=== PATIENT | female | born 1990 | race American Indian/Alaskan Native ===

== ENCOUNTER 2019-04-04 09:33 | Emergency (ER) | payer SELFPAY ==
[2019-04-04 10:39] LABS: HCG Qualitative,Urine Positive (Negative)
[2019-04-04 10:42] LABS: Basophils % (Auto) 0.5 % (0.0-1.8); Eosinophils # (Auto) 0.1 K/mm3 (0.0-0.4); Eosinophils % (Auto) 1.9 % (0.0-4.3); Hemoglobin 12.5 gm/dl (10.1-14.3); Lymphocytes # (Auto) 1.4 K/mm3 (1.2-5.4); Lymphocytes % (Auto) 29.8 % (13.4-35.0); Mean Corpuscular HGB Conc 34 % (30-34); Mean Corpuscular Volume 83 fl (79-97); Monocytes # (Auto) 0.3 K/mm3 (0.0-0.8); Monocytes % (Auto) 6.5 % (0.0-7.3); Platelet Count 212 K/mm3 (140-440); Red Blood Count 4.44 M/mm3 (3.65-5.03); Red Cell Distribution Width 14.5 % (13.2-15.2)
--- NOTE | 2019-04-04 10:54 | Emergency Department Report ---
HPI - General Chief Complaint: Abdominal Pain Time Seen by Provider: 04/04/19 09:55 - HPI HPI: 28-year-old [place] female presents to the emergency department with a few different complaints. Patient says that she has some intermittent left lower rib/chest pains that have been going on over the past few months. When they occur, they are sharp, transient, and she says that it hurts to breathe, but the patient denies any of these symptoms at this current time. However last night she had 2-3 episodes of this which was more than usual so she wanted to get checked out. Secondly, the patient complains of a 2-3 day history of some pain behind the left shoulder blade that occurs only with movement of the left arm. Lastly, the patient has some intermittent lower abdominal pains/cramping. She is about 2.5 weeks late for her menstrual cycle. She says that the pains that she is having usually occur during her menstrual cycle but she is not having any current vaginal bleeding. ED Past Medical Hx - Past Medical History Previous Medical History?: Yes Hx Hypertension: No Hx Congestive Heart Failure: No Hx Diabetes: No Hx Deep Vein Thrombosis: No Hx Renal Disease: No Hx Sickle Cell Disease: No Hx Seizures: No Hx Asthma: No Hx COPD: No Hx HIV: No Additional medical history: bact. vaginosis, cysts in breasts, - Surgical History Past Surgical History?: No - Social History Smoking Status: Never Smoker Substance Use Type: Alcohol, Marijuana - Medications Home Medications: Home Medications Medication Instructions Recorded Confirmed Last Taken Type Ferrous Sulfate [Feosol] 325 mg PO QDAY 08/26/16 08/26/16 Unknown History Ibuprofen [Motrin 600 MG tab] 600 mg PO Q8H PRN #30 tablet 08/26/16 Unknown Rx Pnv No.95/Ferrous Fum/Folic AC 1 each PO DAILY 08/26/16 08/26/16 Unknown History [Prenavite Tablet] Docusate Sodium [Colace] 100 mg PO BID PRN #60 capsule 08/28/16 Unknown Rx Ferrous Sulfate [Feosol 325 MG tab] 325 mg PO BID #60 tablet 08/28/16 Unknown Rx Lidocain2.5%/Prilocai2.5% [Emla] 5 gm TP PRN #1 tube 08/28/16 Unknown Rx Vit-Fe Fumar-FA [ 1 tab PO QDAY #30 tablet 04/04/19 Unknown Rx Vitamin] ED Review of Systems ROS: Stated complaint: SIDE PAIN/ABD/SHOULDER PAIN Other details as noted in HPI Comment: All other systems reviewed and negative Constitutional: denies: chills, fever Eyes: denies: eye pain, vision change ENT: denies: ear pain, throat pain Respiratory: denies: cough, wheezing Cardiovascular: chest pain. denies: palpitations Gastrointestinal: abdominal pain. denies: vomiting Genitourinary: denies: dysuria, discharge Musculoskeletal: myalgia. denies: joint swelling Skin: denies: rash, lesions Neurological: denies: headache, numbness, paresthesias Physical Exam - Physical Exam Vital Signs: Vital Signs 04/04/19 09:46 Temperature 98.8 F Pulse Rate 92 H Respiratory 18 Rate Blood Pressure 128/81 O2 Sat by Pulse 100 Oximetry Physical Exam: GENERAL: The patient is well-developed well-nourished. HENT: Normocephalic. Atraumatic. Patient has moist mucous membranes. EYES: Extraocular motions are intact. NECK: Supple. Trachea is midline. CHEST/LUNGS: Clear to auscultation. There is no respiratory distress noted. HEART/CARDIOVASCULAR: Regular. There is no tachycardia. There is no murmur. ABDOMEN: Abdomen is soft, nontender. Patient has normal bowel sounds. There is no abdominal distention. SKIN: Skin is warm and dry. NEURO: The patient is awake, alert, and oriented. The patient is cooperative. The patient has no focal neurologic deficits. The patient has normal speech. MUSCULOSKELETAL: There is no tenderness or deformity. There is no limitation range of motion. There is no evidence of acute injury. ED Course Vital Signs 04/04/19 09:46 Temperature 98.8 F Pulse Rate 92 H Respiratory 18 Rate Blood Pressure 128/81 O2 Sat by Pulse 100 Oximetry ED Medical Decision Making - Lab Data Result diagrams: 04/04/19 10:13 04/04/19 10:13 - EKG Data -: EKG Interpreted by Me EKG shows normal: sinus rhythm, axis, intervals, QRS complexes, ST-T waves Rate: normal - EKG Data When compared to previous EKG there are: previous EKG unavailable Interpretation: normal EKG - Radiology Data Radiology results: report reviewed, image reviewed interpreted by me: Chest x-ray does not show any acute process. There are no pleural effusions, obvious pneumonia and there is no pneumothorax. PROCEDURE: US OB <= 14 WEEKS FETUS TECHNIQUE: Transabdominal and transvaginal pelvic ultrasound HISTORY: abd pain, COMPARISONS: No priors FINDINGS: The uterus measures approximately 7.4 cm longitudinally. There is a single viable intrauterine . [place]-rump length corresponds to a gestational age of 7 weeks and 3 days. The heart rate is 159 bpm. There is no evidence of subchorionic hemorrhage. The right ovary is normal in contour and echotexture. There is a complex lesion in the left ovary with complex cystic component most consistent with corpus luteum measuring 1.7 cm in diameter. Ovarian vascularity demonstrated with color flow images. IMPRESSION: Single viable intrauterine at approximately 7 weeks and 3 days of gestation 1.7 cm corpus luteum in the left ovary. . This document is electronically signed by Adonay Robertson MD., April 04 2019 01:16:48 PM ET - Medical Decision Making This patient presents to the emergency department with a complaint of some short transient sharp pains that she gets in the left lower portion of the rib cage that has been going on for the past month or so but she had 2 or 3 episodes of this last night that caused her to come in to be seen. It happens with inspiration but otherwise she denies being short of breath overall. She had an EKG that does not show any ST elevation [place], ischemia or dysrhythmia. Patient had some blood work done and early on the urinalysis came back showing just she was positive for . She later admitted that she was a few weeks late for her last menstrual cycle. We discussed the risk versus benefits of getting a chest x-ray and she agreed to get a shielded one view AP chest x-ray. It did not show any signs of any pneumothorax, pleural effusions, focal consolidation, pneumonia, or any other acute process. Patient is not having any vaginal bleeding or any significant abdominal pain but does have some abdominal cramping. For this reason, along with the positive test, the patient had a transvaginal/ ultrasound came back showing a live intrauterine at about 7 weeks and 3 days. She has not had any further episodes of her chest pain or shortness of breath twinges while in the emergency department. Her vital signs are stable including being afebrile. There is been no tachypnea or hypoxia. She is low on the well's score criteria for concern of pulmonary embolism and is negative on the pulmonary embolism rule out criteria. 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 She will return to the ER with any return of her chest pain, shortness of breath, worsening of her symptoms, or with any acute distress. - Differential Diagnosis pneumonia, pneumothorax, viral URI, pleurisy Critical Care Time: No Critical care attestation.: If time is entered above; I have spent that time in minutes in the direct care of this critically ill patient, excluding procedure time. ED Disposition Clinical Impression: Rib pain on left side, Pain of left scapula, Musculoskeletal pain Qualifiers: Weeks of gestation: less than 8 weeks Qualified Code(s): Z3A.01 - Less than 8 weeks gestation of Disposition: - TO HOME OR SELFCARE Is pt being admited?: No Condition: Stable Instructions: Chest Pain (ED), (ED), Musculoskeletal Pain (ED) Additional Instructions: Please follow-up with your [employer]SEMBLER and a primary care physician. Return to the emergency Department with any worsening of your symptoms or any acute distress. You can take Tylenol every 4-6 hours, using the weight-based dosing on the back of the bottle, as needed for any discomfort. Otherwise do not take any medications that are not prescribed by a physician. I am starting you on vitamins. Prescriptions: Vit-Fe Fumar-FA [ Vitamin] 1 tab PO QDAY #30 tablet Referrals: TAYO IRWIN MD [Primary Care Provider] - 3-5 Days RAMIN REGALADO MD [Staff Physician] - 3-5 Days Forms: Work/School Release Form(ED) Time of Disposition: 16:06
[2019-04-04 11:01] LABS: Alanine Aminotransferase 12 units/L (7-56); Albumin 4.1 g/dL (3.9-5); BUN/Creatinine Ratio 20; Blood Urea Nitrogen 10 mg/dL (7-17); Hemolysis Index 5
[2019-04-04 11:20] LABS: Bilirubin,Urine NEG (Negative); Blood,Urine NEG (Negative); Color,Urine Yellow (Yellow); Mucus,Urine 2+ /HPF; Protein,Urine <15 mg/dL mg/dL (Negative); Urobilinogen,Urine < 2.0 mg/dL (<2.0)
--- NOTE | 2019-04-04 13:09 | XRay Report ---
PROCEDURE: XR CHEST 1V AP TECHNIQUE: Chest radiograph single view. HISTORY: chest pain COMPARISONS: None currently available. FINDINGS: Cardiac silhouette is within normal limits. There is no effusion. There is no pneumothorax. There is no consolidation. There are no suspicious osseous lesions. IMPRESSION: * No acute cardiopulmonary findings. This document is electronically signed by Segundo Dias MD., April 04 2019 01:06:56 PM ET
--- NOTE | 2019-04-04 13:18 | Ultrasound Report ---
PROCEDURE: US OB <= 14 WEEKS FETUS TECHNIQUE: Transabdominal and transvaginal pelvic ultrasound HISTORY: abd pain, COMPARISONS: No priors FINDINGS: The uterus measures approximately 7.4 cm longitudinally. There is a single viable intrauterine . [place]-rump length corresponds to a gestational age of 7 weeks and 3 days. The heart rate is 159 bpm. There is no evidence of subchorionic hemorrhage. The right ovary is normal in contour and echotexture. There is a complex lesion in the left ovary with complex cystic component most consistent with corpus luteum measuring 1.7 cm in diameter. Ovarian vascularity demonstrated with color flow images. IMPRESSION: Single viable intrauterine at approximately 7 weeks and 3 days of gestation 1.7 cm corpus luteum in the left ovary. . This document is electronically signed by Adonay Robertson MD., April 04 2019 01:16:05 PM ET
--- NOTE | 2019-04-04 13:18 | Ultrasound Report ---
PROCEDURE: US OB <= 14 WEEKS FETUS TECHNIQUE: Transabdominal and transvaginal pelvic ultrasound HISTORY: abd pain, COMPARISONS: No priors FINDINGS: The uterus measures approximately 7.4 cm longitudinally. There is a single viable intrauterine . [place]-rump length corresponds to a gestational age of 7 weeks and 3 days. The heart rate is 159 bpm. There is no evidence of subchorionic hemorrhage. The right ovary is normal in contour and echotexture. There is a complex lesion in the left ovary with complex cystic component most consistent with corpus luteum measuring 1.7 cm in diameter. Ovarian vascularity demonstrated with color flow images. IMPRESSION: Single viable intrauterine at approximately 7 weeks and 3 days of gestation 1.7 cm corpus luteum in the left ovary. . This document is electronically signed by Adonay Robertson MD., April 04 2019 01:16:48 PM ET
[2019-04-04 13:50] VITALS: BP 125/54
== END 2019-04-04 13:48 | disposition home or self-care (01) ==
LOC: ED 09:33
DX: O26.891 Other specified pregnancy related conditions, first trimester (principal); R07.81 Pleurodynia; M25.512 Pain in left shoulder; O99.321 Drug use complicating pregnancy, first trimester; F12.10 Cannabis abuse, uncomplicated; Z91.018 Allergy to other foods; Z3A.01 Less than 8 weeks gestation of pregnancy
CPT/HCPCS: 36415; 71045; 76801; 76817; 80053; 81001; 81025; 83690; 84484; 85025; 93005; 93010

== ENCOUNTER 2020-05-13 23:13 | Emergency (ER) | payer MEDICAID ==
[2020-05-14 03:10] VITALS: BP 150/90
[2020-05-14] MEDS ORDERED: IBUPROFEN 600 MG TAB PO ONE (03:12)
--- NOTE | 2020-05-14 03:13 | Emergency Department Report ---
- General Chief complaint: Skin/Abscess/Foreign Body Stated complaint: LEFT BREAST HARD AND SWOLLEN Time Seen by Provider: 05/14/20 02:37 Source: patient Mode of arrival: Ambulatory Limitations: No Limitations - History of Present Illness Initial comments: 29-year-old -Tong[place] female presents to the emergency room for left breast pain and swelling redness for 5 days. Patient states that she had some drainage from her nipple left breast when she palpates. Patient reports that she was seen at [facility] on and was given a prescription for ibuprofen. Patient does endorse that she has a [employer] Dr. Beckwith but had not followed up with him. Patient denies any fever chills no nausea no vomiting. Onset/Timin -: days(s) Tetanus Up to Date: yes Location: chest (Left breast) Severity scale (0 -10): 9 Quality: stabbing, sharp Consistency: constant Improves with: none Worsens with: palpation, movement Context: none Associated symptoms: denies other symptoms Treatments Prior to Arrival: NSAID - Related Data Home Medications Medication Instructions Recorded Confirmed Last Taken Ferrous Sulfate [Feosol] 325 mg PO QDAY 08/26/16 08/26/16 Unknown Pnv No.95/Ferrous Fum/Folic AC 1 each PO DAILY 08/26/16 08/26/16 Unknown [Prenavite Tablet] Previous Rx's Medication Instructions Recorded Last Taken Type Ibuprofen [Motrin 600 MG tab] 600 mg PO Q8H PRN #30 tablet 08/26/16 Unknown Rx Docusate Sodium [Colace] 100 mg PO BID PRN #60 capsule 08/28/16 Unknown Rx Ferrous Sulfate [Feosol 325 MG tab] 325 mg PO BID #60 tablet 08/28/16 Unknown Rx Lidocain2.5%/Prilocai2.5% [Emla] 5 gm TP PRN #1 tube 08/28/16 Unknown Rx Vit-Fe Fumar-FA [ 1 tab PO QDAY #30 tablet 04/04/19 Unknown Rx Vitamin] Allergies Allergy/AdvReac Type Severity Reaction Status Date / Time tomato [Tomato] Allergy Hives Verified 07/09/13 09:56 Abscess Boil HPI - HPI Chief Complaint: Skin/Abscess/Foreign Body Stated Complaint: LEFT BREAST HARD AND SWOLLEN Time Seen by Provider: 07/19/20 02:37 Home Medications: Home Medications Medication Instructions Recorded Confirmed Last Taken Ferrous Sulfate [Feosol] 325 mg PO QDAY 08/26/16 08/26/16 Unknown Pnv No.95/Ferrous Fum/Folic AC 1 each PO DAILY 08/26/16 08/26/16 Unknown [Prenavite Tablet] Previous Rx's Medication Instructions Recorded Last Taken Type Ibuprofen [Motrin 600 MG tab] 600 mg PO Q8H PRN #30 tablet 08/26/16 Unknown Rx Docusate Sodium [Colace] 100 mg PO BID PRN #60 capsule 08/28/16 Unknown Rx Ferrous Sulfate [Feosol 325 MG tab] 325 mg PO BID #60 tablet 08/28/16 Unknown Rx Lidocain2.5%/Prilocai2.5% [Emla] 5 gm TP PRN #1 tube 08/28/16 Unknown Rx Vit-Fe Fumar-FA [ 1 tab PO QDAY #30 tablet 04/04/19 Unknown Rx Vitamin] Allergies/Adverse Reactions: Allergies Allergy/AdvReac Type Severity Reaction Status Date / Time tomato [Tomato] Allergy Hives Verified 07/09/13 09:56 ED Review of Systems ROS: Stated complaint: LEFT BREAST HARD AND SWOLLEN Other details as noted in HPI Comment: All other systems reviewed and negative ED Past Medical Hx - Past Medical History Hx Hypertension: No Hx Congestive Heart Failure: No Hx Diabetes: No Hx Deep Vein Thrombosis: No Hx Renal Disease: No Hx Sickle Cell Disease: No Hx Seizures: No Hx Asthma: No Hx COPD: No Hx HIV: No Additional medical history: bact. vaginosis, cysts in breasts, - Surgical History Past Surgical History?: No - Social History Smoking Status: Never Smoker Substance Use Type: None - Medications Home Medications: Home Medications Medication Instructions Recorded Confirmed Last Taken Type Ferrous Sulfate [Feosol] 325 mg PO QDAY 08/26/16 08/26/16 Unknown History Ibuprofen [Motrin 600 MG tab] 600 mg PO Q8H PRN #30 tablet 08/26/16 Unknown Rx Pnv No.95/Ferrous Fum/Folic AC 1 each PO DAILY 08/26/16 08/26/16 Unknown History [Prenavite Tablet] Docusate Sodium [Colace] 100 mg PO BID PRN #60 capsule 08/28/16 Unknown Rx Ferrous Sulfate [Feosol 325 MG tab] 325 mg PO BID #60 tablet 08/28/16 Unknown Rx Lidocain2.5%/Prilocai2.5% [Emla] 5 gm TP PRN #1 tube 08/28/16 Unknown Rx Vit-Fe Fumar-FA [ 1 tab PO QDAY #30 tablet 04/04/19 Unknown Rx Vitamin] ED Physical Exam - General Limitations: No Limitations General appearance: alert, in no apparent distress, in distress - Head Head exam: Present: atraumatic, normocephalic - Eye Eye exam: Present: normal appearance - ENT ENT exam: Present: mucous membranes moist - Neck Neck exam: Present: normal inspection, full ROM. Absent: lymphadenopathy - Respiratory Respiratory exam: Present: normal lung sounds bilaterally, other (Left breast large mass with warmth and tenderness no nipple discharge masses on the lateral). Absent: respiratory distress - Cardiovascular Cardiovascular Exam: Present: regular rate - Neurological Exam Neurological exam: Present: alert, oriented X3, normal gait - Psychiatric Psychiatric exam: Present: normal affect, normal mood ED Medical Decision Making - Medical Decision Making 29-year-old -Tongan female presents to the emergency room for left breast pain and swelling redness for 5 days. Patient states that she had some drainage from her nipple left breast when she palpates. Patient reports that she was seen at [facility] on and was given a prescription for ibuprofen. Patient does endorse that she has a [employer]EL [employer] Dr. Beckwith but had not followed up with him. Patient denies any fever chills no nausea no vomiting. This patient was evaluated by Dr. Harley ER attending. He recommends following up with the breast specialist and [employer]EL [employer]UFACTURE INSTRUCTOR. I recommend patient to continue with pain medication follow-up with specialist warm compresses. Critical care attestation.: If time is entered above; I have spent that time in minutes in the direct care of this critically ill patient, excluding procedure time. ED Disposition Clinical Impression: Breast lump or mass Disposition: TO HOME OR SELFCARE Is pt being admited?: No Does the pt Need Aspirin: No Condition: Stable Instructions: Breast Mass (ED) Additional Instructions: Continue with the ibuprofen. Warm compresses. And very important for you to follow-up with APPAREL [employer]UFACTURE INSTRUCTOR. I am also putting down on your discharge summary a breast specialist Dr. Mckeon. Call her office on Friday morning to make an appointment as well. Referrals: RAMIN BECKWITH MD [Primary Care Provider] - 3-5 Days GAVIN MCKEON MD [Staff Physician] - 3-5 Days Forms: Work/School Release Form(ED)
== END 2020-05-14 03:36 | disposition home or self-care (01) ==
LOC: ED 23:13
DX: N63.20 Unspecified lump in the left breast, unspecified quadrant (principal); Z79.899 Other long term (current) drug therapy; Z91.018 Allergy to other foods
CPT/HCPCS: 99282

== ENCOUNTER 2020-11-14 18:39 | Emergency (ER) | payer MEDICAID ==
--- NOTE | 2020-11-14 19:12 | Event Note ---
ED Screening Note Date of service: 11/14/20 Time: 19:09 ED Screening Note: pt is a 30 y/o aaf with hx of Fibrocystic breast who present with CP and SOB with n/v after [address] am, symptoms sudden onset, have worsen ed since 1030 am. rated at 6/10 at this time. denies hx of PE, nonsmoker, no oral contraceptives. This initial assessment/diagnostic orders/clinical plan/treatment(s) is/are subject to change based on patients health status, clinical progression and re-assessment by fellow clinical providers in the ED. Further treatment and workup at subsequent clinical providers discretion. Patient/guardian urged not to elope from the ED as their condition may be serious if not clinically assessed and managed. Initial orders include: EKG, CXR, cbc, hcg, pt, ptt,
[2020-11-14 20:48] LABS: Basophils % (Auto) 0.6 % (0.0-1.8); Eosinophils # (Auto) 0.1 K/mm3 (0.0-0.4); Eosinophils % (Auto) 0.8 % (0.0-4.3); Hematocrit 32.6 % (30.3-42.9); Hemoglobin 10.2 gm/dl (10.1-14.3); Lymphocytes # (Auto) 1.6 K/mm3 (1.2-5.4); Mean Corpuscular HGB Conc 31 % (30-34); Mean Corpuscular Volume 71 fl (79-97); Monocytes # (Auto) 0.5 K/mm3 (0.0-0.8); Monocytes % (Auto) 7.8 % (0.0-7.3); Platelet Count 295 K/mm3 (140-440); Red Blood Count 4.58 M/mm3 (3.65-5.03); Red Cell Distribution Width 17.3 % (13.2-15.2)
[2020-11-14 21:01] LABS: INR 1.15 (0.87-1.13)
[2020-11-14 21:02] LABS: Partial Thromboplastin Time 33.2 Sec. (24.2-36.6)
[2020-11-14 21:16] LABS: Alanine Aminotransferase 75 units/L (7-56); Albumin 4.2 g/dL (3.9-5); Blood Urea Nitrogen 8 mg/dL (7-17); Calcium 9.1 mg/dL (8.4-10.2); Hemolysis Index 2
[2020-11-14 21:19] LABS: BUN/Creatinine Ratio 16
--- NOTE | 2020-11-15 02:00 | Emergency Department Report ---
ED General Adult HPI - General Chief complaint: Nausea/Vomiting/Diarrhea Stated complaint: CHEST PAIN PUI?: No Time Seen by Provider: 11/15/20 01:30 Source: patient Mode of arrival: Ambulatory Limitations: No Limitations - History of Present Illness Initial comments: Chief complaint: My chest was hurting. I just wanted to get checked out. H PI: This is a 28-year-old female with history of granulomatous mastitis requiring incision and drainage who presents with left-sided right-sided chest pain gradual onset this evening. Pain is worse with deep breath. Pain has subsided. She denies cough shortness of breath. No use of control. No recent travel. Pain has not returned since being observed in emergency departm ent for several hours. She denies fever. She denies any sick contacts. She also noticed that she had a upset stomach. She has had irregular bleeding this month. She has had 2 episodes of vaginal bleeding which both lasted several days this month. Patient is currently symptom-free. -: Gradual Location: chest Consistency: now resolved Improves with: none Worsens with: other (Inspiration) - Related Data Previous Rx's Medication Instructions Recorded Last Taken Type Acetaminophen [Acetaminophen TAB] 650 mg PO Q4H PRN tablet 06/30/20 Unknown Rx Oxycodone HCl/Acetaminophen 1 each PO TID PRN #12 tablet 06/30/20 Unknown Rx [Percocet 10/325 mg] predniSONE 10 mg PO QDAY tablet 06/30/20 Unknown Rx traMADoL [Ultram 50 MG tab] 50 mg PO Q6HR PRN #15 tablet 06/30/20 Unknown Rx Allergies Allergy/AdvReac Type Severity Reaction Status Date / Time No Known Allergies Allergy Verified 06/26/20 13:05 ED Review of Systems ROS: Stated complaint: CHEST PAIN Other details as noted in HPI Comment: All other systems reviewed and negative Constitutional: denies: fever, malaise Respiratory: shortness of breath. denies: cough Cardiovascular: chest pain ED Past Medical Hx - Past Medical History Previous Medical History?: Yes Hx Hypertension: No Hx Congestive Heart Failure: No Hx Diabetes: No Hx Deep Vein Thrombosis: No Hx Renal Disease: No Hx Sickle Cell Disease: No Hx Seizures: No Hx Asthma: No Hx COPD: No Hx HIV: No Additional medical history: bact. vaginosis, cysts in breasts, MASTITIS ( C HRONIC) - Surgical History Past Surgical History?: Yes Hx Pacemaker: No Hx Internal Defibrillator: No Additional Surgical History: Breast incision and drainage - Social History Smoking Status: Never Smoker - Medications Home Medications: Home Medications Medication Instructions Recorded Confirmed Last Taken Type Acetaminophen [Acetaminophen TAB] 650 mg PO Q4H PRN tablet 06/30/20 Unknown Rx Oxycodone HCl/Acetaminophen 1 each PO TID PRN #12 tablet 06/30/20 Unknown Rx [Percocet 10/325 mg] predniSONE 10 mg PO QDAY tablet 06/30/20 Unknown Rx traMADoL [Ultram 50 MG tab] 50 mg PO Q6HR PRN #15 tablet 06/30/20 Unknown Rx ED Physical Exam - General Limitations: No Limitations General appearance: alert, in no apparent distress, other (Heart rate 66 bpm on monitor pulse ox 97% on room air) - Head Head exam: Present: atraumatic, normocephalic - Eye Eye exam: Present: normal appearance - ENT ENT exam: Present: mucous membranes moist - Neck Neck exam: Present: normal inspection, full ROM - Respiratory Respiratory exam: Present: normal lung sounds bilaterally. Absent: respiratory distress, wheezes, rales, rhonchi - Cardiovascular Cardiovascular Exam: Present: regular rate, normal rhythm, normal heart sounds. Absent: systolic murmur, diastolic murmur, rubs, gallop - GI/Abdominal GI/Abdominal exam: Present: soft, normal bowel sounds. Absent: distended, tenderness, guarding, rebound - Extremities Exam Extremities exam: Present: normal inspection - Neurological Exam Neurological exam: Present: alert, oriented X3 - Psychiatric Psychiatric exam: Present: normal affect, normal mood - Skin Skin exam: Present: warm, dry, intact, normal color. Absent: rash ED Course Vital Signs 11/14/20 19:01 Temperature 97.9 F Pulse Rate 96 H Respiratory 18 Rate Blood Pressure 155/98 [Right] O2 Sat by Pulse 74 L Oximetry ED Medical Decision Making - Lab Data Result diagrams: 11/14/20 20:05 11/14/20 20:05 Laboratory Results - last 24 hr 11/14/20 11/14/20 11/14/20 20:05 20:05 20:05 WBC 6.9 RBC 4.58 Hgb 10.2 Hct 32.6 MCV 71 L MCH 22 L MCHC 31 RDW 17.3 H Plt Count 295 Lymph % (Auto) 23.0 [place] % (Auto) 7.8 H Eos % (Auto) 0.8 Baso % (Auto) 0.6 Lymph # (Auto) 1.6 [place] # (Auto) 0.5 Eos # (Auto) 0.1 Baso # (Auto) 0.0 Seg Neutrophils % 67.8 Seg Neutrophils # 4.7 PT 14.5 INR 1.15 H APTT 33.2 Sodium 138 Potassium 4.0 Chloride 104.1 Carbon Dioxide 22 Anion Gap 16 BUN 8 Creatinine 0.5 L Estimated GFR > 60 BUN/Creatinine Ratio 16 Glucose 89 Calcium 9.1 Total Bilirubin 0.30 AST 59 H ALT 75 H Alkaline Phosphatase 169 H Total Protein 7.7 Albumin 4.2 Albumin/Globulin Ratio 1.2 Lipase 20 - Radiology Data Radiology results: report reviewed cxr: no significant abnormality according to radiology impression - Medical Decision Making 1. Chest pain: No indication of pulmonary embolism or AMI. Patient is at extremely low risk for cardiac disease. Do not suspect pericarditis with presentation. I suspect chest wall pain versus PVC. PERC negative for PE. No history of premature heart disease in the family. 2. Stomach upset generalized malaise. I recommended home test. Also recommended COVID-19 testing. Critical care attestation.: If time is entered above; I have spent that time in minutes in the direct care of this critically ill patient, excluding procedure time. ED Disposition Clinical Impression: Chest wall pain Disposition: DC-01 TO HOME OR SELFCARE Is pt being admited?: No Does the pt Need Aspirin: No Condition: Stable Instructions: Chest Wall Pain, [id number], Nonspecific Chest Pain, Adult, [id number], Chest Pain (ED) Additional Instructions: If your symptoms progress, please obtain COVID-19 test. Referrals: TAYO IRWIN MD [Staff Physician] - 3-5 Days Forms: Work/School Release Form(ED)
--- NOTE | 2020-11-15 02:58 | XRay Report ---
CHEST 2 VIEWS 0235 INDICATION / CLINICAL INFORMATION: chest pain COMPARISON: 06/26/2020 FINDINGS: SUPPORT DEVICES: None. HEART / MEDIASTINUM: No significant abnormality. LUNGS / PLEURA: No significant pulmonary or pleural abnormality. No pneumothorax. ADDITIONAL FINDINGS: No significant additional findings. IMPRESSION: No significant acute abnormality Signer Name: Robert Hopkins MD Signed: 11/15/2020 2:53 AM Workstation Name: [id number]
[2020-11-15 03:01] VITALS: BP 107/72
== END 2020-11-15 03:06 | disposition home or self-care (01) ==
LOC: ED 18:39
DX: R07.89 Other chest pain (principal); Z79.899 Other long term (current) drug therapy
CPT/HCPCS: 36415; 71046; 80053; 83690; 85025; 85610; 85730; 99283

== ENCOUNTER 2021-06-25 14:04 | Emergency (ER) | payer MEDICAID ==
[2021-06-25 14:32] VITALS: BP 143/86
[2021-06-25] MEDS ORDERED: ASPIRIN 325 MG TAB PO ONE (14:34)
[2021-06-25 15:12] LABS: Basophils % (Auto) 0.8 % (0.0-1.8); Eosinophils # (Auto) 0.1 K/mm3 (0.0-0.4); Eosinophils % (Auto) 1.8 % (0.0-4.3); Hematocrit 33.4 % (30.3-42.9); Hemoglobin 10.8 gm/dl (10.1-14.3); Lymphocytes # (Auto) 1.7 K/mm3 (1.2-5.4); Lymphocytes % (Auto) 43.3 % (13.4-35.0); Mean Corpuscular HGB Conc 32 % (30-34); Mean Corpuscular Volume 74 fl (79-97); Monocytes # (Auto) 0.3 K/mm3 (0.0-0.8); Monocytes % (Auto) 8.5 % (0.0-7.3); Platelet Count 199 K/mm3 (140-440); Red Blood Count 4.48 M/mm3 (3.65-5.03); Red Cell Distribution Width 16.4 % (13.2-15.2)
--- NOTE | 2021-06-25 15:21 | XRay Report ---
CHEST 2 VIEWS INDICATION: chest pain. COMPARISON: 11/15/2020 FINDINGS: SUPPORT DEVICES: None. HEART: Within normal limits. LUNGS/PLEURA: No acute air space or interstitial disease. No pneumothorax. ADDITIONAL FINDINGS: None. IMPRESSION: 1. No acute findings. Signer Name: Jonnathan Segundo MD Signed: 06/25/2021 3:17 PM Workstation Name: [email or web address][email or web address]
[2021-06-25 15:35] LABS: Alanine Aminotransferase 12 units/L (7-56); Albumin 4.3 g/dL (3.9-5); Blood Urea Nitrogen 11 mg/dL (7-17); Calcium 9.3 mg/dL (8.4-10.2); Hemolysis Index 6
[2021-06-25 15:39] LABS: BUN/Creatinine Ratio 22
--- NOTE | 2021-06-25 17:36 | Event Note ---
ED Screening Note ED Screening Note: Patient is a 30-year-old female presents emergency room with complaints of chest pain across the chest that began this morning She has associated shortness of breath and pain with taking a deep breath She states her pain is also worse with movement She states her pain feels like a pulling sensation She denies any cough, nausea, vomiting, diarrhea, fever, chills Past medical history of IgM and she said she used to take steroids but was taken off 6 months ago Allergy to morphine No sick contacts, no recent travel, no hormone use This initial assessment/diagnostic orders/clinical plan/treatment(s) is/are subject to change based on patients health status, clinical progression and re- assessment by fellow clinical providers in the ED. Further treatment and workup at subsequent clinical providers discretion. Patient/guardian urged not to elope from the ED as their condition may be serious if not clinically assessed and managed. Initial orders include: Second troponin, will add on D-dimer due to pleuritic pain
--- NOTE | 2021-06-25 19:24 | Emergency Department Report ---
ED Chest Pain HPI - General Chief Complaint: Chest Pain Stated Complaint: CP/MARGE Time Seen by Provider: 06/25/21 17:29 Source: patient Mode of arrival: Ambulatory Limitations: No Limitations - History of Present Illness Initial Comments: Patient is a 30-year-old -[place] female with no past medical history who presents to the ED with complaint of acute onset persistent diffuse anterior chest wall pain after she slept on the couch 2 days ago. Patient states that the pain is worse with inhalation, movement or any active range of motion includ ing turning her neck on either side. Patient states that the pain is persistent and worse with even slight movement. Patient denies fever, chills, shortness of breath, nausea and vomiting, traumatic injury, dizziness, syncope, palpitations, heavy lifting, fever, chills, cough, sore throat, back pain, abdominal pain, diarrhea, change in vision, neck pain or bilateral upper and lower extremity keila moreno MD Complaint: chest pain (Anterior diffuse chest wall pain) -: Sudden, hour(s) (12) Onset: awoke with symptoms Pain Location: substernal Pain Radiation: none Severity: severe Severity scale (0 -10): 7 Quality: aching, sharp Consistency: constant Improves With: nothing Worsens With: palpation, movement Context: other (slept in the couch all night) re: denies: nausea, vomting, diaphoresis, dyspnea, sense of impending doom Other Symptoms: denies: cough, fever, syncope, rash, acid taste in mouth, palpitations, burping, other Treatments Prior to Arrival: none Aspirin use within the Past 7 Days: (0) No - Related Data On Oral Contraceptives: No Previous Rx's Medication Instructions Recorded Last Taken Type Acetaminophen [Acetaminophen TAB] 650 mg PO Q4H PRN tablet 06/30/20 Unknown Rx Oxycodone HCl/Acetaminophen 1 each PO TID PRN #12 tablet 06/30/20 Unknown Rx [Percocet 10/325 mg] predniSONE 10 mg PO QDAY tablet 06/30/20 Unknown Rx Baclofen 20 mg PO Q12H PRN #30 tablet 06/25/21 Unknown Rx Ibuprofen [Motrin] 800 mg PO Q8HR PRN #30 tablet 06/25/21 Unknown Rx traMADoL [Ultram 50 MG tab] 50 mg PO Q6HR PRN #15 tablet 06/25/21 Unknown Rx Allergies Allergy/AdvReac Type Severity Reaction Status Date / Time morphine AdvReac Hives Verified 06/25/21 14:32 Heart Score - HEART Score History: Slightly suspicious EKG: Normal Age: < 45 Risk factors: No known risk factors Troponin: < normal limit HEART Score: 0 - EKG Read Time Time EKG Completed: 14:39 EKG Read Time: 14:43 - Critical Actions Critical Actions: 0-3 pts:0.9-1.7%risk of adverse cardiac event.Candidate for discharge ED Review of Systems ROS: Stated complaint: CP/MARGE Other details as noted in HPI Constitutional: denies: chills, fever Eyes: denies: eye pain, eye discharge, vision change ENT: denies: ear pain, throat pain Respiratory: denies: cough, shortness of breath, wheezing Cardiovascular: chest pain (diffuse chest wall pain). denies: palpitations Endocrine: no symptoms reported Gastrointestinal: denies: abdominal pain, nausea, vomiting, diarrhea Genitourinary: denies: urgency, dysuria, discharge Musculoskeletal: arthralgia (diffuse chest wall pain). denies: back pain, joint swelling Skin: denies: rash, lesions Neurological: denies: headache, weakness, paresthesias Psychiatric: denies: anxiety, depression Hematological/Lymphatic: denies: easy bleeding, easy bruising ED Past Medical Hx - Past Medical History Hx Hypertension: No Hx Congestive Heart Failure: No Hx Diabetes: No Hx Deep Vein Thrombosis: No Hx Renal Disease: No Hx Sickle Cell Disease: No Hx Seizures: No Hx Asthma: No Hx COPD: No Hx HIV: No Additional medical history: bact. vaginosis, cysts in breasts, MASTITIS ( CHRONIC) - Surgical History Hx Pacemaker: No Hx Internal Defibrillator: No Additional Surgical History: Breast incision and drainage - Social History Smoking Status: Never Smoker - Medications Home Medications: Home Medications Medication Instructions Recorded Confirmed Last Taken Type Acetaminophen [Acetaminophen TAB] 650 mg PO Q4H PRN tablet 06/30/20 Unknown Rx Oxycodone HCl/Acetaminophen 1 each PO TID PRN #12 tablet 06/30/20 Unknown Rx [Percocet 10/325 mg] predniSONE 10 mg PO QDAY tablet 06/30/20 Unknown Rx Baclofen 20 mg PO Q12H PRN #30 tablet 06/25/21 Unknown Rx Ibuprofen [Motrin] 800 mg PO Q8HR PRN #30 tablet 06/25/21 Unknown Rx traMADoL [Ultram 50 MG tab] 50 mg PO Q6HR PRN #15 tablet 06/25/21 Unknown Rx ED Physical Exam - General Limitations: No Limitations General appearance: alert, in no apparent distress - Head Head exam: Present: atraumatic, normocephalic, normal inspection - Eye Eye exam: Present: normal appearance, PERRL, EOMI Pupils: Present: normal accommodation - ENT ENT exam: Present: normal exam, normal orophraynx, mucous membranes moist, TM's normal bilaterally, normal external ear exam - Neck Neck exam: Present: normal inspection, full ROM - Respiratory Respiratory exam: Present: normal lung sounds bilaterally, chest wall tenderness (Palpable reproducible diffuse chest wall tenderness). Absent: respiratory distress, wheezes, rales, rhonchi, accessory muscle use, decreased breath sounds, prolonged expiratory - Cardiovascular Cardiovascular Exam: Present: regular rate, normal rhythm, normal heart sounds. Absent: systolic murmur, diastolic murmur, rubs, gallop - GI/Abdominal GI/Abdominal exam: Present: soft, normal bowel sounds. Absent: tenderness, guarding, rebound, hyperactive bowel sounds, hypoactive bowel sounds, organomegaly - Extremities Exam Extremities exam: Present: normal inspection, full ROM, normal capillary refill. Absent: tenderness, calf tenderness - Back Exam Back exam: Present: normal inspection, full ROM. Absent: tenderness, CVA tenderness (R), CVA tenderness (L), muscle spasm, paraspinal tenderness - Neurological Exam Neurological exam: Present: alert, oriented X3, CN II-XII intact, normal gait, reflexes normal - Psychiatric Psychiatric exam: Present: normal affect, normal mood - Skin Skin exam: Present: warm, dry, intact, normal color. Absent: rash ED Course Vital Signs 06/25/21 06/25/21 14:31 20:32 Temperature 98.9 F Pulse Rate 87 72 Respiratory 20 16 Rate Blood Pressure 143/86 [Left] O2 Sat by Pulse 100 100 Oximetry DIALLO score - Diallo Score Age > 65: (0) No Aspirin use within the Past 7 Days: (0) No 3 or more CAD Risk Factors: (0) No 2 or more Angina events in past 24 hrs: (0) No Known CAD with more than 50% Stenosis: (0) No Elevated Cardiac Markers: (0) No ST Deviation Greater than 0.5mm: (0) No DIALLO Score: 0 ED Medical Decision Making - Lab Data Result diagrams: 06/25/21 14:57 06/25/21 14:57 - EKG Data EKG shows normal: sinus rhythm Rate: normal - EKG Data Interpretation: normal EKG 06/26/21 00:22 EKG shows normal sinus rhythm with a ventricular rate of [address] or T wave abnormalities. - Radiology Data Radiology results: report reviewed, image reviewed [facility] [address] [place] [address] XRay Report Signed Patient: SHINE BRAVO R#: [id number] : 1990 Acct:[id number] Age/Sex: 30 / F ADM Date: 06/25/21 Loc: ED Attending Dr: Ordering Physician: ED MD RAKESH Date of Service: 06/25/21 Procedure(s): XR chest routine 2V Accession Number(s): [id number] cc: ED MD RAKESH Fluoro Time In Minutes: CHEST 2 VIEWS INDICATION: chest pain. COMPARISON: 11/15/2020 FINDINGS: SUPPORT DEVICES: None. HEART: Within normal limits. LUNGS/PLEURA: No acute air space or interstitial disease. No pneumothorax. ADDITIONAL FINDINGS: None. IMPRESSION: 1. No acute findings. Signer Name: Jonnathan Segundo MD Signed: 06/25/2021 3:17 PM Workstation Name: [id number] Transcribed By: JW Dictated By: Jonnathan Segundo MD Electronically Authenticated By: Jonnathan Segundo MD Signed Date/Time: 06/25/21 1517 DD/ 151 TD/TT: - Medical Decision Making This is a 30-year-old -[place] female with no past medical history who presents to the ED with complaint of acute onset persistent diffuse anterior chest wall pain after she slept on the couch 2 days ago. Patient states that the pain is worse with inhalation, movement or any active range of motion including turning her neck on either side. Patient states that the pain is persistent and worse with even slight movement. In the ED, patient is alert and oriented x3 and is not in any distress. Patient is hemodynamically stable but anxious in triage. Physical exam reveals reproducible diffuse anterior chest wall tenderness with palpation or any slight passive and active range of motion. Lab test results were reviewed and are all nonactionable including D-dimer level. Chest x-ray shows no acute cardiopulmonary abnormalities or pneumonitis. Patient was therefore discharged home on medications based on the history and physical exam findings as well as lab test results and imaging reports. Patient symptoms are likely musculoskeletal strain following abnormal posture while sleeping on the couch. Patient's heart score is 0 and patient is PERC negative per Wells criteria as well. Patient was therefore discharged home on pain medications and advised to follow-up with her primary care physician in 5 to 7 days for reevaluation or return to the ED immediately if symptoms get worse. - Differential Diagnosis Pneumonia; Muscle strain; costochondritis; muscle spasm; ACS; PE; Anxiety Critical care attestation.: If time is entered above; I have spent that time in minutes in the direct care of this critically ill patient, excluding procedure time. ED Disposition Clinical Impression: Acute costochondritis, Acute nonspecific chest pain with low risk of coronary artery disease, Muscle strain of anterior chest wall Disposition: 01 HOME / SELF CARE / HOMELESS Is pt being admited?: No Does the pt Need Aspirin: No Condition: Stable Instructions: Costochondritis, [id number], Chest Wall Pain, [id number], Muscle Strain, [id number], Nonspecific Chest Pain, Adult, [id number], Chest Pain (ED) Additional Instructions: All lab test results were reviewed and are all nonactionable. Chest x-ray shows no acute cardiopulmonary abnormalities or pneumonitis. Your symptoms are likely due to muscle strain of your chest wall. Therefore take medication with food, drink plenty of fluids and follow-up with your primary care physician in 7 to 10 days for reevaluation. Return to the ED immediately if symptoms get worse. Prescriptions: Baclofen 20 mg PO Q12H PRN #30 tablet PRN Reason: Muscle Spasm Ibuprofen [Motrin] 800 mg PO Q8HR PRN #30 tablet PRN Reason: Pain , Severe (7-10) traMADoL [Ultram 50 MG tab] 50 mg PO Q6HR PRN #15 tablet PRN Reason: Pain Referrals: [facility] [Provider Group] - 3-5 Days Forms: Work/School Release Form(ED) Time of Disposition: 19:31 Print Language: YI Date: 06/26/21 This is a 30-year-old -[place] female with no past medical history who presents to the ED with complaint of acute onset persistent diffuse anterior chest wall pain after she slept on the couch 2 days ago. Patient states that the pain is worse with inhalation, movement or any active range of motion including turning her neck on either side. Patient states that the pain is persistent and worse with even slight movement. In the ED, patient is alert and oriented x3 and is not in any distress. Patient is hemodynamically stable but anxious in triage. Physical exam reveals reproducible diffuse anterior chest wall tenderness with palpation or any slight passive and active range of motion. Lab test results were reviewed and are all nonactionable including D-dimer level. Chest x-ray shows no acute cardiopulmonary abnormalities or pneumonitis. Patient was therefore discharged home on medications based on the history and physical exam findings as well as lab test results and imaging reports. Patient symptoms are likely musculoskeletal strain following abnormal posture while sleeping on the couch. Patient's heart score is 0 and patient is PERC negative per Wells criteria as well. Patient was therefore discharged home on pain medications and advised to follow-up with her primary care physician in 5 to 7 days for reevaluation or return to the ED immediately if symptoms get worse. - Addendum Date: 06/26/21 Note: This is a 30-year-old -[place]rit[place] female with no past medical history who presents to the ED with complaint of acute onset persistent diffuse anterior chest wall pain after she slept on the couch 2 days ago. Patient states that the pain is worse with inhalation, movement or any active range of motion including turning her neck on either side. Patient states that the pain is persistent and worse with even slight movement. In the ED, patient is alert and oriented x3 and is not in any distress. Patient is hemodynamically stable but anxious in triage. Physical exam reveals reproducible diffuse anterior chest wall tenderness with palpation or any slight passive and active range of motion. Lab test results were reviewed and are all nonactionable including D-dimer level. Chest x-ray shows no acute cardiopulmonary abnormalities or pneumonitis. Patient was therefore discharged home on medications based on the history and physical exam findings as well as lab test results and imaging reports. Patient symptoms are likely musculoskeletal strain following abnormal posture while sl eeping on the couch. Patient's heart score is 0 and patient is PERC negative per Wells criteria as well. Patient was therefore discharged home on pain medications and advised to follow-up with her primary care physician in 5 to 7 days for reevaluation or return to the ED immediately if symptoms get worse.
--- NOTE | 2021-06-26 08:57 | Electrocardiograph Report ---
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
== END 2021-06-25 19:36 | disposition home or self-care (01) ==
LOC: ED 14:04
DX: S29.011A Strain of muscle and tendon of front wall of thorax, initial encounter (principal); M94.0 Chondrocostal junction syndrome [Tietze]; R07.89 Other chest pain; N76.0 Acute vaginitis; N60.09 Solitary cyst of unspecified breast; N60.19 Diffuse cystic mastopathy of unspecified breast; Z98.890 Other specified postprocedural states; Z88.6 Allergy status to analgesic agent; X58.XXXA Exposure to other specified factors, initial encounter; Y93.89 Activity, other specified; Y92.89 Other specified places as the place of occurrence of the external cause; Y99.8 Other external cause status
CPT/HCPCS: 36415; 71046; 80053; 84484; 84703; 85025; 85379; 93005; 99283

== ENCOUNTER 2021-08-28 21:40 | Emergency (ER) | payer MEDICAID ==
[2021-08-28 22:01] VITALS: BP 153/100
[2021-08-28] MEDS ORDERED: CLINDAMYCIN 300 MG CAP PO ONE (22:52)
[2021-08-28] MEDS ORDERED: SULFAMETHOXAZOLE/TRIMETHOPRIM 800/160MG DS TAB PO ONE (22:52)
[2021-08-28] MEDS ORDERED: ACETAMINOPHEN 500 MG TAB PO ONE (22:52)
[2021-08-28] MEDS ORDERED: ONDANSETRON 4 MG ODT TAB PO ONE (22:52)
[2021-08-28] MEDS ORDERED: IBUPROFEN 600 MG TAB PO ONE (22:52)
--- NOTE | 2021-08-29 00:09 | Vascular Lab Report ---
DUPLEX DOPPLER LOWER EXTREMITY VEINS, RIGHT INDICATION / CLINICAL INFORMATION: right calf pain. TECHNIQUE: Duplex doppler imaging was performed through the veins of the right lower extremity using venous comp ression and other maneuvers. COMPARISON: None available. FINDINGS: RIGHT COMMON FEMORAL VEIN: Negative. RIGHT FEMORAL VEIN: Negative. RIGHT POPLITEAL VEIN: Negative. RIGHT CALF VEINS: Negative. ADDITIONAL FINDINGS: None. IMPRESSION: 1. No sonographic evidence for DVT in the right lower extremity. Signer Name: Bruno Giles MD Signed: 08/29/2021 12:05 AM Workstation Name: [id number]
--- NOTE | 2021-08-29 00:17 | Emergency Department Report ---
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 Patient states that the left breast has painful swollen labs and given a history of idiopathic granulomatous mastitis, she decided come to the ED to be evaluated. Patient denies chest pain, shortness of breath, fever, chills, nausea, vomiting, dizziness, syncope, cough, traumatic injury, heavy lifting, numbness and tingling or weakness of right leg or change in vision. MD Complaint: extremity pain (Posterior right calf pain), other (Left breast keila nful lumps) -: Sudden, week(s) (1) Location: right, lower extremity (Right cough), other (Left wrist) History of Same: Yes -: No fever, No associated dyspnea, No associated chest pain Radiation: none Severity scale (0 -10): 4 Quality: aching, sharp Consistency: constant Improves with: nothing Worsens with: weight bearing, walking, palpation Associated Symptoms: denies other symptoms, myalgias, arthralgias (Right knee pain). denies: chest pain, shortness of breath, fever, rash - Related Data Previous Rx's Medication Instructions Recorded Last Taken Type Acetaminophen [Acetaminophen TAB] 650 mg PO Q4H PRN tablet 06/30/20 Unknown Rx Oxycodone HCl/Acetaminophen 1 each PO TID PRN #12 tablet 06/30/20 Unknown Rx [Percocet 10/325 mg] predniSONE 10 mg PO QDAY tablet 06/30/20 Unknown Rx Baclofen 20 mg PO Q12H PRN #30 tablet 06/25/21 Unknown Rx traMADoL [Ultram 50 MG tab] 50 mg PO Q6HR PRN #15 tablet 06/25/21 Unknown Rx Clindamycin [Clindamycin CAP] 300 mg PO Q8HR #60 capsule 08/29/21 Unknown Rx Ibuprofen [Motrin 800 MG tab] 800 mg PO Q8HR PRN #30 tablet 08/29/21 Unknown Rx Ondansetron [Zofran Odt] 4 mg PO Q6HR PRN #15 tab.rapdis 08/29/21 Unknown Rx Sulfamethoxazole/Trimethoprim 1 each PO Q12H #20 tablet 08/29/21 Unknown Rx [Bactrim DS TAB] Allergies Allergy/AdvReac Type Severity Reaction Status Date / Time morphine AdvReac Hives Verified 06/25/21 14:32 ED Review of Systems ROS: Stated complaint: POSS DVT Other details as noted in HPI Constitutional: denies: chills, fever Eyes: denies: eye pain, eye discharge, vision change ENT: denies: ear pain, throat pain Respiratory: denies: cough, shortness of breath, wheezing Cardiovascular: other (Left breast painful lumps). denies: chest pain, palpitations Endocrine: no symptoms reported Gastrointestinal: denies: abdominal pain, nausea, diarrhea Genitourinary: denies: urgency, dysuria, discharge Musculoskeletal: arthralgia (Posterior right cough and knee pain). denies: back pain, joint swelling Skin: denies: rash, lesions Neurological: denies: headache, weakness, paresthesias Psychiatric: denies: anxiety, depression Hematological/Lymphatic: denies: easy bleeding, easy bruising ED Past Medical Hx - Past Medical History Hx Hypertension: No Hx Congestive Heart Failure: No Hx Diabetes: No Hx Deep Vein Thrombosis: No Hx Renal Disease: No Hx Sickle Cell Disease: No Hx Seizures: No Hx Asthma: No Hx COPD: No Hx HIV: No Additional medical history: bact. vaginosis, cysts in breasts, MASTITIS ( CHRONIC) - Surgical History Hx Pacemaker: No Hx Internal Defibrillator: No Additional Surgical History: Breast incision and drainage - Social History Smoking Status: Never Smoker - Medications Home Medications: Home Medications Medication Instructions Recorded Confirmed Last Taken Type Acetaminophen [Acetaminophen TAB] 650 mg PO Q4H PRN tablet 06/30/20 Unknown Rx Oxycodone HCl/Acetaminophen 1 each PO TID PRN #12 tablet 06/30/20 Unknown Rx [Percocet 10/325 mg] predniSONE 10 mg PO QDAY tablet 06/30/20 Unknown Rx Baclofen 20 mg PO Q12H PRN #30 tablet 06/25/21 Unknown Rx traMADoL [Ultram 50 MG tab] 50 mg PO Q6HR PRN #15 tablet 06/25/21 Unknown Rx Clindamycin [Clindamycin CAP] 300 mg PO Q8HR #60 capsule 08/29/21 Unknown Rx Ibuprofen [Motrin 800 MG tab] 800 mg PO Q8HR PRN #30 tablet 08/29/21 Unknown Rx Ondansetron [Zofran Odt] 4 mg PO Q6HR PRN #15 tab.rapdis 08/29/21 Unknown Rx Sulfamethoxazole/Trimethoprim 1 each PO Q12H #20 tablet 08/29/21 Unknown Rx [Bactrim DS TAB] ED Physical Exam - General Limitations: No Limitations General appearance: alert, in no apparent distress - Head Head exam: Present: atraumatic, normocephalic, normal inspection - Eye Eye exam: Present: normal appearance, PERRL, EOMI Pupils: Present: normal accommodation - ENT ENT exam: Present: normal exam, normal orophraynx, mucous membranes moist, TM's normal bilaterally, normal external ear exam - Neck Neck exam: Present: normal inspection, full ROM - Respiratory Respiratory exam: Present: normal lung sounds bilaterally, other (Palpable tenderness of left breast cystic lumps; female pricing director Ms. Cano the lead manufacturing engineering tech present). Absent: respiratory distress, wheezes, rales, rhonchi, chest wall tenderness, accessory muscle use, decreased breath sounds, prolonged expiratory - Cardiovascular Cardiovascular Exam: Present: regular rate, normal rhythm, normal heart sounds. Absent: systolic murmur, diastolic murmur, rubs, gallop - GI/Abdominal GI/Abdominal exam: Present: soft, normal bowel sounds. Absent: tenderness, guarding, rebound, hyperactive bowel sounds, hypoactive bowel sounds, organomegaly - Extremities Exam Extremities exam: Present: normal inspection, full ROM, tenderness (Palpable posterior left calf mild tenderness), normal capillary refill. Absent: pedal edema - Back Exam Back exam: Present: normal inspection, full ROM. Absent: tenderness, CVA tenderness (R), CVA tenderness (L), muscle spasm, paraspinal tenderness, vertebral tenderness - Neurological Exam Neurological exam: Present: alert, oriented X3, CN II-XII intact, normal gait, reflexes normal - Psychiatric Psychiatric exam: Present: normal affect, normal mood - Skin Skin exam: Present: warm, dry, intact, normal color. Absent: rash ED Course Vital Signs 08/28/21 08/28/21 21:58 23:27 Temperature 98.7 F Pulse Rate 95 H Respiratory 20 18 Rate Blood Pressure 153/100 O2 Sat by Pulse 100 Oximetry ED Medical Decision Making - Radiology Data Radiology results: report reviewed, image reviewed [facility] [address] [place] [address] Vascular Lab Report Signed Patient: SHINE BRAVO R#: [id number] : 1990 Acct:[id number] Age/Sex: 30 / F ADM Date: 08/28/21 Loc: ED Attending Dr: Ordering Physician: LB PETTY Date of Service: 08/28/21 Procedure(s): VL venous duplex LE RT Accession Number(s): [id number] cc: LB PETTY DUPLEX DOPPLER LOWER EXTREMITY VEINS, RIGHT INDICATION / CLINICAL INFORMATION: right calf pain. TECHNIQUE: Duplex doppler imaging was performed through the veins of the right lower extremity using venous compression and other maneuvers. COMPARISON: None available. FINDINGS: RIGHT COMMON FEMORAL VEIN: Negative. RIGHT FEMORAL VEIN: Negative. RIGHT POPLITEAL VEIN: Negative. RIGHT CALF VEINS: Negative. ADDITIONAL FINDINGS: None. IMPRESSION: 1. No sonographic evidence for DVT in the right lower extremity. 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 Patient states that the left breast has painful swollen labs and given a history of idiopathic granulomatous mastitis, she decided come to the ED to be evaluated. In the ED, patient is alert and oriented x3 and is not in any distress. Patient is hemodynamically stable. Patient was treated for pain in the ED and also given initial oral antibiotics empirically for possible left breast abscess or mastitis. The Doppler ultrasound of right lower leg showed no sonographic evidence of DVT. Patient was therefore discharged home on pain medications and antibiotics for suspected left breast mastitis and advised to follow-up with her [employer] physi gabriela in 7 to 10 days for reevaluation or return to the ED immediately if symptoms get worse. - Differential Diagnosis DVT; muscle strain; muscle spasm; fibrocystic breast disease; mastitis Critical care attestation.: If time is entered above; I have spent that time in minutes in the direct care of this critically ill patient, excluding procedure time. ED Disposition Clinical Impression: Painful lumpy left breast Muscle strain of right lower extremity Qualifiers: Encounter type: initial encounter Qualified Code(s): S86.911A - Strain of unspecified muscle(s) and tendon(s) at lower leg level, right leg, initial encounter Disposition: HOME / SELF CARE / HOMELESS Is pt being admited?: No Does the pt Need Aspirin: No Condition: Stable Instructions: Muscle Strain, [id number], Fibrocystic Breast Changes, [id number] Additional Instructions: The Doppler ultrasound of right leg showed no sonographic evidence of DVT. Therefore take medication with food, drink plenty of fluids and follow-up with your primary care physician in 7 to 10 days for reevaluation. Return to the ED immediately if symptoms get worse. Prescriptions: Sulfamethoxazole/Trimethoprim [Bactrim DS TAB] 1 each PO Q12H #20 tablet Clindamycin [Clindamycin CAP] 300 mg PO Q8HR #60 capsule Ibuprofen [Motrin 800 MG tab] 800 mg PO Q8HR PRN #30 tablet PRN Reason: Pain , Severe (7-10) Ondansetron [Zofran Odt] 4 mg PO Q6HR PRN #15 tab.rapdis PRN Reason: Nausea Referrals: [facility] [Provider Group] - 7-10 days Forms: Work/School Release Form(ED) Time of Disposition: 00:20 Print Language: [place]
== END 2021-08-29 00:52 | disposition home or self-care (01) ==
LOC: ED 21:40
DX: S86.911A Strain of unspecified muscle(s) and tendon(s) at lower leg level, right leg, initial encounter (principal); N63.20 Unspecified lump in the left breast, unspecified quadrant; Z88.5 Allergy status to narcotic agent; X58.XXXA Exposure to other specified factors, initial encounter; Y93.89 Activity, other specified; Y92.89 Other specified places as the place of occurrence of the external cause; Y99.8 Other external cause status
CPT/HCPCS: 99283; Q0162